=== PATIENT | male | born 1995 | race Caucasian/White ===

== ENCOUNTER 2020-01-29 16:01 | Emergency (ER) | payer SELFPAY ==
[~2020-01-29] VITALS: Ht 188 cm; Wt 85.0 kg
[2020-01-29 16:35] VITALS: BP 145/85
== END 2020-01-29 16:35 | disposition home or self-care (01) | DRG 563 ==
LOC: ED 16:01
DX: S39.012A Strain of muscle, fascia and tendon of lower back, initial encounter (principal); F17.200 Nicotine dependence, unspecified, uncomplicated; X50.0XXA Overexertion from strenuous movement or load, initial encounter; Y92.009 Unspecified place in unspecified non-institutional (private) residence as the place of occurrence of the external cause

== ENCOUNTER 2020-04-13 12:53 | Emergency (ER) | payer SELFPAY ==
[~2020-04-13] VITALS: Ht 185.4 cm; Wt 87.3 kg
[2020-04-13] MEDS ORDERED: KEFLEX500 M1 PO (14:32)
[2020-04-13 14:55] VITALS: BP 132/74
== END 2020-04-13 14:55 | disposition home or self-care (01) | DRG 605 ==
LOC: ED 12:53
DX: S91.331A Puncture wound without foreign body, right foot, initial encounter (principal); F17.210 Nicotine dependence, cigarettes, uncomplicated; W45.0XXA Nail entering through skin, initial encounter; Y92.009 Unspecified place in unspecified non-institutional (private) residence as the place of occurrence of the external cause